=== PATIENT | male | born 1960 | race Caucasian/White ===

== ENCOUNTER 2020-02-09 10:19 | Emergency (ER) | payer SELFPAY ==
[~2020-02-09] VITALS: Ht 175.3 cm; Wt 101.6 kg
[2020-02-09 10:22] VITALS: Ht 175.3 cm; Wt 101.6 kg
[2020-02-09 11:14] LABS: BASOPHIL % 0.3 % (0-2); PLATELET COUNT 167 x10^3mcL (130-400); RED CELL DISTRIBUTION WIDTH 13.2 % (11.5-14.5)
[2020-02-09 11:31] LABS: CALCIUM 8.5 mg/dL (8.5-10.1); CARBON DIOXIDE 23.8 mmol/L (21-32); CHLORIDE SERUM 100 mmol/L (98-107); CREATININE SERUM 1.1 mg/dL (0.7-1.3); GFR1 > 60 mL/min; GLUCOSE SERUM 164 mg/dL (74-106); POTASSIUM SERUM 4.2 mmol/L (3.5-5.1); SODIUM SERUM 132 mmol/L (136-145)
[2020-02-09 11:35] LABS: ALBUMIN 3.5 g/dL (3.4-5.0); ALKALINE PHOSPHATASE 65 U/L (46-116); ALT/SGPT 48 U/L (16-63); AST/SGOT 52 U/L (15-37); BILIRUBIN TOTAL 0.56 mg/dL (0.20-1.00); C REACTIVE PROTEIN 10.2 mg/dL (<=0.9); LACTIC DEHYDROGENASE (LDH) 392 U/L (100-190); TOTAL PROTEIN, SERUM 8.8 g/dL (6.4-8.2)
[2020-02-09 13:18] VITALS: BP 121/84
== END 2020-02-09 13:18 | disposition home or self-care (01) ==
LOC: ED 10:19
PROVIDERS: Specialist
DX: U07.1 COVID-19 (principal)
CPT/HCPCS: 36600; 83880; 85378; 87804; J7030; Q0092